=== PATIENT | female | born 1975 | race Caucasian/White ===

== ENCOUNTER → 2023-08-28 12:07 | Outpatient (REF) | payer BC, SELFPAY | LOC: WDC 12:07 | PROVIDERS: ATTENDING PHYSICIAN Obstetrics & Gynecology; FAMILY PHYSICIAN Internal Medicine | DX: Z12.31 Encounter for screening mammogram for malignant neoplasm of breast (principal) | CPT/HCPCS: 77063; 77067 ==

== ENCOUNTER → 2023-09-05 11:01 | Outpatient (REF) | payer BC, SELFPAY | LOC: RAD 11:01 | PROVIDERS: ATTENDING PHYSICIAN Obstetrics & Gynecology; FAMILY PHYSICIAN Internal Medicine | DX: D25.9 Leiomyoma of uterus, unspecified (principal) | CPT/HCPCS: 76830; 76856 ==

== ENCOUNTER → 2023-09-16 08:12 | Outpatient (REF) | payer BC, SELFPAY ==
[2023-09-16 10:17] LABS: Urine Albumin Negative (Neg - Trace); Urine Bilirubin Negative (Negative); Urine Character Clear (Clear); Urine Color Straw; Urine Glucose Negative (Negative); Urine Ketone Negative (Negative); Urine Leukocyte Negative (Negative); Urine Nitrite Negative (Negative); Urine Occult Blood Negative (Negative); Urine Specific Gravity 1.005 (<1.030); Urine Urobilinogen Negative (Neg - 1+)
== END ==
LOC: REG 08:12
PROVIDERS: ATTENDING PHYSICIAN Nurse Practitioner Family; FAMILY PHYSICIAN Internal Medicine
DX: N30.00 Acute cystitis without hematuria (principal); N39.0 Urinary tract infection, site not specified
CPT/HCPCS: 81003; 87086

== ENCOUNTER → 2023-10-17 08:02 | Outpatient (REF) | payer BC, SELFPAY ==
[2023-10-17 09:39] LABS: % Eosinophils 3.3 % (0-6); % Immature Granulocytes 0.3 % (0-0.5); % Lymphocytes 27.6 % (20.5-51.1); % Monocytes 11.1 % (1.7-9.3); % Neutrophils 56.7 % (42.2-75.2); Absolute Basophils 0.1 10^3/uL (0-0.2); Absolute Eosinophils 0.2 10^3/uL (0-0.7); Absolute Monocytes 0.8 10^3/uL (0.1-0.6); Absolute Neutrophils 4.1 10^3/uL (1.4-6.5); Hematocrit 42.6 % (37.0-47.0); Hemoglobin 13.9 g/dL (12.0-16.0); Mean Corp Hgb Conc. 32.6 g/dL (33.0-37.0); Mean Corpuscular Volume 95.1 fL (81.0-99.0); Mean Platelet Volume 11.7 fL (7.4-10.4); Nucleated Red Blood Cells % 0 %; Platelet Count 274 10^3/uL (130-400); Red Blood Cell Count 4.48 10^6/uL (4.20-5.40); White Blood Cell Count 7.2 10^3/uL (4.8-10.8)
[2023-10-17 11:00] LABS: ALT (SGPT) 20 U/L (0-35); AST (SGOT) 24 U/L (14-36); Albumin 4.4 g/dl (3.5-5.0); Alkaline Phosphatase 53 U/L (38-126); Blood Urea Nitrogen 12 mg/dl (7-17); Calcium 9.5 mg/dl (8.4-10.2); Carbon Dioxide 26 mmol/L (22-30); Chloride 105 mmol/L (98-107); Glucose 92 mg/dl (70-99); HDL Cholesterol 74 mg/dl; Iron 136 ug/dl (37-170); LDH 186 U/L (120-246); LDL Cholesterol, Calculated 103 mg/dl; Potassium 4.2 mmol/L (3.5-5.1); Sodium 140 mmol/L (135-145); Total Bilirubin 0.6 mg/dl (0.2-1.3); Total Cholesterol 192 mg/dl (50-199); Total Protein 7.3 g/dl (6.3-8.2); Triglyceride 79 mg/dl (10-149); Very Low Density Lipoprotein 15 mg/dl (0-30); eGFR > 60.00
[2023-10-17 11:09] LABS: Percent Saturation 40 % (20-50); Total Iron Binding Capacity 334 ug/dl (265-497)
[2023-10-17 11:19] LABS: Free T4 0.88 ng/dl (0.78-2.19)
[2023-10-17 11:33] LABS: TSH 1.73 uIU/ml (0.47-4.68)
[2023-10-17 11:37] LABS: Ferritin 10.5 ng/ml (6.24-137)
== END ==
LOC: REG 08:02
PROVIDERS: ATTENDING PHYSICIAN Internal Medicine; OTHER PHYSICIAN Dermatology; REFERRING PHYSICIAN Obstetrics & Gynecology
DX: Z85.820 Personal history of malignant melanoma of skin (principal); Z00.00 Encounter for general adult medical examination without abnormal findings; N92.0 Excessive and frequent menstruation with regular cycle; C43.71 Malignant melanoma of right lower limb, including hip
CPT/HCPCS: 36415; 71046; 80053; 80061; 82728; 83540; 83550; 83615; 84439; 84443; 85025

== ENCOUNTER 2023-11-04 06:23 | Day surgery (SDC) | payer BC, SELFPAY ==
[2023-10-30 13:05] VITALS: BMI 29.4
[2023-10-30 14:28] LABS: Beta HCG Quantitative < 2.39 mIU/ml
[2023-11-04] VITALS (9 sets, daily range): BP systolic 102–120; BP diastolic 67–79; BMI 29.4
[2023-11-04] MEDS: NORMOSOL-R 1000 IV (09:24)
[2023-11-04] MEDS: TYLENOL 1000 MG PO (09:24)
--- NOTE | 2023-11-04 10:27 | W.SUR.POST ---
Surgical Immediate Post Op
Note
Pre Op Diagnosis: Menorrhagia, abnormal uterine bleeding, abnormal Ultrasound, submucosal fibroid.
Post Op Diagnosis: same
Procedure Performed: hysteroscopy D&C resection submucosal fibroid
Primary Surgeon: Namrata Wan DO
Anesthesia: spinal Dr. Galdamez
Estimated Blood Loss: 5ml
Fluid Deficit 140ml
Specimens/Cultures: 1. endocervical curettings 2. endometrial curettings and fragments fibroid
Complications: none
Operative Findings: Uterus sounded to 8 cm. Uterus with small submucosal fibroid with small amount pushing into endometrial cavity-resected, bilateral tubal ostia seen.
counts correct times 2.
Stable to recovery.
[2023-11-04] MEDS: DILAUDID 0.5 MG IV (10:42)
== END 2023-11-04 12:15 | disposition home or self-care (01) ==
LOC: SDS 06:23
PROVIDERS: ATTENDING PHYSICIAN Obstetrics & Gynecology; FAMILY PHYSICIAN Internal Medicine
DX: D25.9 Leiomyoma of uterus, unspecified (principal); N84.0 Polyp of corpus uteri; N92.0 Excessive and frequent menstruation with regular cycle; N93.9 Abnormal uterine and vaginal bleeding, unspecified; N94.6 Dysmenorrhea, unspecified; R11.0 Nausea
CPT/HCPCS: 58561; 88305; 36415; 84702; 86850; 86900; 86901

== ENCOUNTER → 2024-09-01 17:12 | Outpatient (REF) | payer BC, SELFPAY | LOC: WDC 17:12 | PROVIDERS: ATTENDING PHYSICIAN Obstetrics & Gynecology; FAMILY PHYSICIAN Internal Medicine | DX: Z12.31 Encounter for screening mammogram for malignant neoplasm of breast (principal) | CPT/HCPCS: 77063; 77067 ==

== ENCOUNTER → 2024-11-04 07:51 | Outpatient (REF) | payer BC, SELFPAY ==
[2024-11-04 09:10] LABS: % Basophils 0.9 % (0-2); % Eosinophils 3.4 % (0-6); % Immature Granulocytes 0.3 % (0-0.5); % Lymphocytes 26.7 % (20.5-51.1); % Monocytes 10.3 % (1.7-9.3); % Neutrophils 58.4 % (42.2-75.2); Absolute Basophils 0.1 10^3/uL (0-0.2); Absolute Eosinophils 0.3 10^3/uL (0-0.7); Absolute Lymphocytes 2.1 10^3/uL (1.2-3.4); Absolute Monocytes 0.8 10^3/uL (0.1-0.6); Absolute Neutrophils 4.7 10^3/uL (1.4-6.5); Hematocrit 40.6 % (37.0-47.0); Hemoglobin 13.4 g/dL (12.0-16.0); Mean Platelet Volume 11.4 fL (7.4-10.4); Nucleated Red Blood Cells % 0 %; Platelet Count 274 10^3/uL (130-400); Red Blood Cell Count 4.32 10^6/uL (4.20-5.40); Red Cell Dist. Width 13.2 % (11.5-14.5)
[2024-11-04 10:53] LABS: ALT (SGPT) 23 U/L (0-35); AST (SGOT) 22 U/L (14-36); Albumin 4.4 g/dl (3.5-5.0); Alkaline Phosphatase 44 U/L (38-126); Blood Urea Nitrogen 17 mg/dl (7-17); Calcium 9.4 mg/dl (8.4-10.2); Carbon Dioxide 26 mmol/L (22-30); Chloride 106 mmol/L (98-107); Glucose 88 mg/dl (70-99); HDL Cholesterol 75 mg/dl; LDH 191 U/L (120-246); LDL Cholesterol, Calculated 91 mg/dl; Potassium 4.3 mmol/L (3.5-5.1); Sodium 138 mmol/L (135-145); Total Bilirubin 0.6 mg/dl (0.2-1.3); Total Cholesterol 180 mg/dl (50-199); Total Protein 7.3 g/dl (6.3-8.2); Triglyceride 71 mg/dl (10-149); Very Low Density Lipoprotein 14 mg/dl (0-30); eGFR > 60.00
[2024-11-04 11:13] LABS: TSH 1.22 uIU/ml (0.47-4.68)
[2024-11-04 11:35] LABS: LDL Cholesterol, Direct 90 mg/dl
== END ==
LOC: REG 07:51
PROVIDERS: ATTENDING PHYSICIAN Nurse Practitioner Primary Care; FAMILY PHYSICIAN Internal Medicine
DX: Z85.820 Personal history of malignant melanoma of skin (principal); Z00.00 Encounter for general adult medical examination without abnormal findings; Z13.220 Encounter for screening for lipoid disorders
CPT/HCPCS: 36415; 80053; 80061; 83615; 83721; 84443; 85025

== ENCOUNTER → 2024-11-19 11:05 | Outpatient (REF) | payer BC, SELFPAY | LOC: WDC 11:05 | PROVIDERS: ATTENDING PHYSICIAN Obstetrics & Gynecology; FAMILY PHYSICIAN Internal Medicine | DX: R92.2 Inconclusive mammogram (principal) | CPT/HCPCS: 76641 ==

== ENCOUNTER 2025-01-07 06:24 | Day surgery (SDC) | payer BC, SELFPAY | END 2025-01-07 10:35 | disposition home or self-care (01) | LOC: GI 06:24 | PROVIDERS: ATTENDING PHYSICIAN Internal Medicine Gastroenterology | DX: R07.9 Chest pain, unspecified (principal); K29.70 Gastritis, unspecified, without bleeding | CPT/HCPCS: 43239; 88305; 88342 ==